=== PATIENT | female | born 1980 | race Caucasian/White ===

== ENCOUNTER 2019-05-04 12:13 | Emergency (ER) | payer OTHER ==
[~2019-05-04] VITALS: Ht 180.3 cm; Wt 114.3 kg
[2019-05-04] MEDS ORDERED: predniSONE 10 MG TABLET PO ONE (13:15)
[2019-05-04] MEDS ORDERED: diphenhydrAMINE HCL 25 MG CAPSULE PO ONE (13:15)
[2019-05-04] MEDS: PROCHLORPERAZINE 10 MG/2 ML VIAL. IM ONE ×2 (13:24→13:29)
[2019-05-04] MEDS: KETOROLAC 60 MG/2 ML VIAL. IM ONE ×2 (13:24→13:29)
[2019-05-04 13:26] VITALS: BP 165/73
[2019-05-04] MEDS ORDERED: SUMA50TA3 PO (13:38)
--- NOTE | 2019-05-04 13:38 | PHYS DOC ---
Past Medical History Past Medical History: Migraines Additional Past Medical Histor: HTN IN Additional Past Surgical Histo: JAW REPAIRED Alcohol Use: None Drug Use: None Adult General Chief Complaint Chief Complaint: HEADACHE HPI HPI Patient is a 38 year old female with history of hypertension during , migraine headaches who presents to the ED today complaining of 8 out of 10 posterior head pain that began yesterday. Patient denies any vomiting but states she's had some nausea. She states she has some photophobia. Denies this being the worst headache in her life. She states she has history of migraine headache is similar to her normal migraines. She states she has tried taking ibuprofen with no relief. Review of Systems Review of Systems Constitutional: Denies fever or chills [] Eyes: Denies change in visual acuity, redness, or eye pain [] HENT: Denies nasal congestion or sore throat [] Respiratory: Denies cough or shortness of breath [] Cardiovascular: No additional information not addressed in HPI [] GI: Denies abdominal pain, nausea, vomiting, bloody stools or diarrhea [] : Denies dysuria or hematuria [] Musculoskeletal: Denies back pain or joint pain [] Integument: Denies rash or skin lesions [] Neurologic: D he reports migraine headache, denies enies headache, focal weakness or sensory changes [] All other systems were reviewed and found to be within normal limits, except as documented in this note. Current Medications Current Medications Current Medications Medications (Trade) Dose Ordered Sig/Meredith Start Time Stop Time Status Last Admin Dose Admin Diphenhydramine HCl (Benadryl) 25 mg 1X ONCE 05/04/19 13:15 05/04/19 13:16 DC 05/04/19 13:24 25 MG Ketorolac Tromethamine (Toradol Im) 60 mg 1X ONCE 05/04/19 13:15 05/04/19 13:16 DC 05/04/19 13:29 60 MG Prednisone (Prednisone) 50 mg 1X ONCE 05/04/19 13:15 05/04/19 13:16 DC 05/04/19 13:24 50 MG Prochlorperazine Edisylate (Compazine) 10 mg 1X ONCE 05/04/19 13:15 05/04/19 13:16 DC 05/04/19 13:29 10 MG Allergies Allergies Allergies Coded Allergies Type Severity Reaction Last Updated Verified Sulfa (Sulfonamide Antibiotics) Allergy Intermediate Rash 05/04/19 Yes Physical Exam Physical Exam Constitutional: Well developed, well nourished, no acute distress, non-toxic appearance. [] HENT: Normocephalic, atraumatic, bilateral external ears normal, oropharynx moist, no oral exudates, nose normal. [] Eyes: PERRLA, EOMI, conjunctiva normal, no discharge. [] Neck: Normal range of motion, no tenderness, supple, no stridor. [] Cardiovascular:Heart rate regular rhythm, no murmur [] Lungs & Thorax: Bilateral breath sounds clear to auscultation [] Abdomen: Bowel sounds normal, soft, no tenderness, no masses, no pulsatile masses. [] Skin: Warm, dry, no erythema, no rash. [] Back: No tenderness, no CVA tenderness. [] Extremities: No tenderness, no cyanosis, no clubbing, ROM intact, no edema. [] Neurologic: Alert and oriented X 3, normal motor function, normal sensory function, no focal deficits noted. Cranial nerves II-XII intact Psychologic: Affect normal, judgement normal, mood normal. [] Current Patient Data Vital Signs Vital Signs Date Time Temp Pulse Resp B/P (MAP) Pulse Ox O2 Delivery O2 Flow Rate FiO2 05/04/19 12:55 98.3 76 14 171/93 (119) 98 Room Air 98.3 EKG EKG [] Radiology/Procedures Radiology/Procedures [] Course & Med Decision Making Course & Med Decision Making Pertinent Labs and Imaging studies reviewed. (See chart for details) This is a 38-year-old female patient presenting to the ED with a migraine headache. Patient has previous history of similar migraines well be given migraine cocktail and discharged to home with Imitrex. Blood pressure was noted in the 170s over low 90s. She states she has history of -induced hypertension. I highly emphasis this patient is also following up with her PCP for blood pressure management and monitoring. Dragon Disclaimer Dragon Disclaimer This electronic medical record was generated, in whole or in part, using a voice recognition dictation system. Departure Departure Impression: Primary Impression: Migraine headache Additional Impression: High blood pressure Disposition: HOME, SELF-CARE Condition: STABLE Referrals: NO PCP (PCP) follow up with your doctor next week Patient Instructions: Headache, FAQs, Migraine Headache, [id number] Additional Instructions: You were evaluated in the emergency room for migraine headache. Take the prescribed medication as ordered as needed. Your blood pressure is running high in the 170s over 90s. Normal blood pressure should be less [id number]. Please follow up with their doctor for blood pressure management Scripts Ondansetron (ONDANSETRON ODT) 4 Mg Tab.rapdis 1 TAB PO PRN Q6-8HRS, #16 TAB Prov: AMOR REYNA APRN 05/04/19 Sumatriptan Succinate (IMITREX) 50 Mg Tablet 1 TAB PO UD, #9 TAB 1 Refill 1 tablet at the onset of the headache then repeat in 2 hours do not take more than 2 tablets in 24 hours Prov: AMOR REYNA APRN 05/04/19 Problem Qualifiers Primary Impression: Migraine headache Migraine type: unspecified Status migrainosus presence: with status migrainosus Intractability: not intractable Qualified Codes: G43.901 - Migraine, unspecified, not intractable, with status migrainosus Additional Impression: High blood pressure Hypertension type: unspecified Qualified Codes: I10 - Essential (primary) hypertension AMOR REYNA APRN May 04, 2019 13:38
[2019-05-04] MEDS ORDERED: ONDA4TAB12 PO (13:40)
== END 2019-05-04 13:45 | disposition home or self-care (01) ==
LOC: ER 12:13
DX: G43.901 Migraine, unspecified, not intractable, with status migrainosus (principal); I10 Essential (primary) hypertension; R11.0 Nausea; Z88.2 Allergy status to sulfonamides
CPT/HCPCS: 96372; 99284; J0780; J1885; J7512; Q0163